=== PATIENT | male | born 1955 | race Hispanic/Latino ===

== ENCOUNTER 2017-09-03 09:49 | Day surgery (SDC) | payer OTHER ==
[2017-09-03] MEDS ORDERED: Dextrose 50% SYRINGE Inj (50 ml) ONE ×2 (10:00→10:03)
== END 2017-09-03 09:50 | disposition still patient (30) ==
LOC: C.CATHLAB 09:49
PROVIDERS: ATTEND Internal Medicine Interventional Cardiology
DX: Z53.9 Procedure and treatment not carried out, unspecified reason (principal)

== ENCOUNTER 2017-09-03 10:28 | Emergency (ER) | payer MEDICARE, MEDICAID ==
[2017-09-03 10:32] VITALS: BMI 24.3
[2017-09-03 10:40] VITALS: O2SAT 100
--- NOTE | 2017-09-03 11:02 | C.PDOC ---
History Of Present Illness <Suyapa Dougherty - Last Filed: 09/03/17 13:19> <Stephanie Leaivtt - Last Filed: 09/06/17 13:23> LTD DUE TO CLINICAL CONDITION; HX PER RAPID RESPONSE TEAM, EMS AND KIERA. 61-YEAR-OLD MALE, IS BROUGHT TO THE EMERGENCY DEPARTMENT WITH COMPLAINTS OF A WITNESSED GENERALIZED SEIZURE IN HEAD START DIRECTOR HOLDING AREA PRIOR TO ER ARRIVAL. PER RR TEAM, PT HAD TONIC CLONIC SZ, AND HAS HX OF KNOWN DISORDER. PT PENDING ELECTIVE CARDIAC CATH FOR CHEST PAIN WORKUP. S/P D50 X2 AND ATIVAN 2MG. PT SZ NOW RESOLVED. PER EMS PT WAS CONVERSANT AND INTERACTING EN ROUTE FROM [place] ON EXAM POST ICTAL ATRAUM NEURO RESPONDS TO VOICE FOCAL AND COMMAND NORMAL SZ ACTIVITY (Suyapa Dougherty) History Per: EMS History/Exam Limitations: clinical condition Recent Seizure Activity Began: Just Before Arrival <Suyapa Dougherty - Last Filed: 09/03/17 13:19> <Stephanie Leavitt - Last Filed: 09/06/17 13:23> Time Seen by Provider: 09/03/17 10:38 Chief Complaint (Nursing): Altered Mental Status Past Medical History Reviewed: Historical Data, Nursing Documentation, Vital Signs - Medical History PMH: Asthma, Dementia, Depression, Diabetes, GERD, HTN, Hypercholesterolemia, Parkinson's Disease, Chronic Kidney Disease, Seizures Family History: States: No Known Family Hx - Social History Hx Alcohol Use: No Hx Substance Use: No <Suyapa Dougherty - Last Filed: 09/03/17 13:19> Vital Signs: Last Vital Signs Temp 98.0 F 09/03/17 14:13 Pulse 73 09/03/17 14:13 Resp 16 09/03/17 14:13 BP 127/75 09/03/17 14:13 Pulse Ox 100 09/03/17 14:13 Review Of Systems Review Of Systems: ROS cannot be obtained secondary to pt's inabilty to answer questions. <Suyapa Dougherty - Last Filed: 09/03/17 13:19> Physical Exam - Physical Exam Appears: Non-toxic, No Acute Distress, Other (POST ICTAL ) Head: Atraumatic, Normacephalic Nose: Normal Lips: Normal Appearing Neck: Normal ROM Chest: Symmetrical Cardiovascular: Rhythm Regular, No Murmur Respiratory: Normal Breath Sounds, No Accessory Muscle Use Gastrointestinal/Abdominal: Soft, No Tenderness Extremity: Normal ROM, No Deformity Neurological/Psych: Other (RESPONDS TO VOICE, FOCAL COMMAND ) <Suyapa Dougherty - Last Filed: 09/03/17 13:19> ED Course And Treatment ECG: Interpreted By Me, Viewed By Me ECG Rhythm: Sinus Rhythm ECG Interpretation: No Acute Changes Interpretation Of ECG: QTc 506 Rate From EC O2 Sat by Pulse Oximetry: 100 (RA) Pulse Ox Interpretation: Normal <Suyapa Dougherty - Last Filed: 09/03/17 13:19> Progress - Data Reviewed Data Reviewed: EKG, Old records <Suyapa Dougherty - Last Filed: 09/03/17 13:19> <Stephanie Leavitt - Last Filed: 09/06/17 13:23> - Re-Evaluation Re-evaluation Note: 09/03/17 10:45 D/W DR MCFADDEN: STATES PT TRANSFERRED FROM [facility] FOR ELECTIVE CATH PART OF CP WORKUP. PT CAN RECEIVE IVF BOLUS. SBP 100, IMPROVED MENTATION. 09/03/17 11:14 D/W DR Michael RAI: AWARE OF ER FINDINGS, AGREES A MGMT PLAN. AGREES FOR TRANSFER BACK TO [facility] IF PT IMPROVES. C: [phone] O: [phone] 09/03/17 12:00 REMAINS SLEEPY BUT AROUSE TO LIGHT STIM. REPEAT FS >250. VSS. SBP 101. (Suyapa Dougherty) Disposition - Disposition Disposition Time: 13:00 <Suyapa Dougherty - Last Filed: 09/03/17 13:19> - Disposition Disposition Time: 13:35 <Stephanie Leavitt - Last Filed: 09/06/17 13:23> - Disposition Referrals: Sivakumar Rai MD [Staff Provider] - Disposition: Trans to Other Acute Care Hosp Condition: STABLE Instructions: Seizures, Adult (DC), Low Blood Sugar in People With Diabetes Forms: [facility] (Chinese) Print Language: UZBEK - Clinical Impression Clinical Impression: Hypoglycemia, Seizure - Scribe Statement The provider has reviewed the documentation as recorded by the Scribe (Sonido Duran) <Suyapa Dougherty - Last Filed: 09/03/17 13:19> <Stephanie Leavitt - Last Filed: 09/06/17 13:23> - Scribe Statement All medical record entries made by the Scribe were at my direction and personally dictated by me. I have reviewed the chart and agree that the record accurately reflects my personal performance of the history, physical exam, medical decision making, and the department course for this patient. I have also personally directed, reviewed, and agree with the discharge instructions and disposition. (Suyapa Dougherty) Physician Patient Turnover Patient Signed Over To: Stephanie Leavitt Handoff Comments: FU DISPO <Suyapa Dougherty - Last Filed: 09/03/17 13:19> Addendum <Suyapa Dougherty - Last Filed: 09/03/17 13:19> <Stephanie Leavitt - Last Filed: 09/06/17 13:23> Addendum: 09/03/17 13:35 Patient is wake & alert, conversing with me, is comfortable and in no distress. Vitals stable and repeat accucheck >300. Patient has been accepted for transfer back to [facility] by PMD Dr. Rai - will set up transfer. (Stephanie Leavitt)
--- NOTE | 2017-09-03 11:04 | C.PDOC ---
History Of Present Illness LTD DUE TO CLINICAL CONDITION HX PER RAPID RESPONSE TEAM, EMS AND KIERA. WITNESSED GEN SEIZURE IN ASSEMBLER DECK AND HULL HOLDING AREA PRIOR TO ER ARRIVAL PER RATEAM TONIC CLONIC SZ HX OF KNOWN DISORDER. PT PENDING ELECTIVE CARDIAC CATHJ FOR CP ORKUP. S/P D50 X2 SAND ATIVAN 2MG SZ NOW RESOLVED. PER MS PT WAS CONVERSANT AND INTERACTING ON ROUTE FROM [place] ON EXAM POST ICTAL ATRAUM NEURO RESPONDS TO VOICE FOCAL AND COMMND NORMAL SZ ACTVITY Time Seen by Provider: 09/03/17 10:38 Chief Complaint (Nursing): Altered Mental Status Past Medical History Vital Signs: Last Vital Signs Temp 98.4 F 09/03/17 10:33 Pulse 82 09/03/17 10:58 Resp 16 09/03/17 10:58 BP 100/54 L 09/03/17 10:58 Pulse Ox 100 09/03/17 10:58 - Medical History PMH: Asthma, Dementia, Depression, Diabetes, GERD, HTN, Hypercholesterolemia, Parkinson's Disease, Chronic Kidney Disease, Seizures Family History: States: Unknown Family Hx - Social History Hx Alcohol Use: No Hx Substance Use: No ED Course And Treatment O2 Sat by Pulse Oximetry: 100 Disposition - Disposition Forms: [facility] (Croatian)
[2017-09-03] MEDS ORDERED: Sodium Chloride 0.9% 250 ML IV ONE ×2 (11:07→11:13)
--- NOTE | 2017-09-03 11:27 | PCM.RRT ---
<Nisa Valerio - Last Filed: 09/03/17 13:18> LOW EMISSION [employer]OM[employer]BILE DESIGNER Nurses Assessment - Situation Date: 09/03/17 Time L[employer] EMISSION [employer] DESIGNER was called: 09:46 LOW EMISSION [employer]OM[employer]LE DESIGNER Responder Arrival Time:: 09:50 LOW EMISSION AUTOMOBILE DESIGNER Location:: Corporate Wellness Coordinator LOW EM[employer]ION [employer]BILE DESIGNER Reason for Call: Change in Mental Status LOW EMISSION AUTOMOBILE DESIGNER Called By: KIM CarranzaReason for LOW EMISSION AUTOMOBILE DESIGNER - A) Acute Change in Patient: (Select all that apply): Acute change in mental status - Neurological Status (Select all that apply): Confused. absent: Alert, Follows Commands Other (Please specify): Altered, then began to seize - Respiratory Oxygen Delivery Method: Room Air - Constitutional Appears: Older Than Stated Age Additional Comments: Altered Seizing in stretcher - Head Head Exam: ATRAUMATIC, NORMOCEPHALIC - Eyes Additional Comments: Unable to follow commands due to seizure - Respiratory Exam Respiratory Exam: Clear to Ausculation Bilateral, NORMAL BREATHING PATTERN. absent: Rales, Rhonchi, Wheezes, Respiratory Distress, Stridor - Cardiovascular Exam Cardiovascular Exam: REGULAR RHYTHM, +S1, +S2 - GI/Abdominal Exam GI & Abdominal Exam: Soft, Normal Bowel Sounds. absent: Distended, Firm, Guarding, Rigid, Tenderness - Neurological Exam Additional exam: Altered, seizing - Extremities Exam Extremities Exam: absent: Calf Tenderness, Pedal Edema Plan - Assessment of Findings&Treatment Plan Rapid response was called at 9:46AM Patient was transferred from [place] to [facility] this morning for cardiac catheterization with Dr. Darling. Patient was kept NPO overnight for cardiac cath today. As per EMS at bedside who transferred patient, patient was talking to them during the trip from [place] to [facility]. He became altered while he was in the holding area prior to cardiac cath today. Patient has a known history of seizure disorder, Type 1DM, HTN, asthma, dementia , depression, GERD, hypercholesterolemia, Parkinson's disease, chronic kidney disease. Patient is reportedly disabled and lives with mother. Initial vitals: HR 80 BP 152/76 Repeat vitals: HR 72 BP 136/66 Patient began to actively seize while at bedside. Patient was rolled onto his side and Ativan 2mg IV stat given. Patient stopped seizing, however remained altered. Patient could not answer questions at bedside. Accucheck at bedside was 29. Patient received 2AMPs of D50. Patient had a stat EKG at bedside which revealed sinus rhythm in bradycardia, no active ST-T changes. Final vitals HR 74 BP 96/50 Final accucheck 365 Patient was then taken to [facility] ER. Case discussed with Dr. Irwin Valerio, PGY1 <Irwin Ramos - Last Filed: 09/03/17 14:08> Attending/Attestation - Attestation I have personally seen and examined this patient.: Yes I have fully participated in the care of the patient.: Yes I have reviewed all pertinent clinical information, including history, physical exam and plan: Yes Notes (Text): 09/03/17 13:48 Medical Hospitalist: On arrival at cardiac warehouse general laborer, ambulance staff noted what appears to be seizure and an LOW EMISSION AUTOMOBILE DESIGNER was called. When I arrived he was still having shakes and ativan 2mg was given. Patient's blood sugar was only 29. It maybe that while at [place] he was NPO and still was reciving large amounts of insulin before comming to [facility] for the cardiac catherization. He was given an amp of D50 during the LOW EMISSION AUTOMOBILE DESIGNER and rechecked. After wards he remained post-ictal and was only mumbling. Per the ambulance staff while at [place] the patient was talkative and could hold a normal conversation. Irwin Ramos
[2017-09-03] MEDS ORDERED: Sodium Chloride 0.9% 500 ML IV ONE ×2 (11:58→12:11)
[2017-09-03 12:46] VITALS: RESP 16
[2017-09-03 13:55] VITALS: PULSE 73
[2017-09-03 14:14] VITALS: BP 127/75; TEMP 98
--- NOTE | 2017-09-07 15:23 | CARD ---
APPROVED REPORT Date of service: 09/03/2017 EKG Measurement Heart [id number] <Conclusion> Normal sinus rhythm Left anterior fascicular block Prolonged QT Abnormal ECG
== END 2017-09-03 14:32 | disposition short-term general hospital (02) ==
LOC: C.ER 10:28
DX: E11.649 Type 2 diabetes mellitus with hypoglycemia without coma (principal); R56.9 Unspecified convulsions
CPT/HCPCS: 82948; 93005; 99285; J2060; J7040

== ENCOUNTER 2017-09-09 09:56 | Day surgery (SDC) | payer OTHER ==
[2017-09-09] MEDS ORDERED: Lidocaine 2% MPF (5 ml) Inj ONE (11:13)
[2017-09-09] MEDS ORDERED: Midazolam 2 MG/2 ML VIAL ONE (11:19)
[2017-09-09] MEDS ORDERED: Iodixanol 320 MG/ML 200 ML BOTTLE IV ONE (11:19)
[2017-09-09] MEDS ORDERED: Sodium Chloride 0.9% 500 ML IV SCH (14:00)
--- NOTE | 2017-09-10 02:04 | PROCN ---
DATE: 09/09/2017 INDICATIONS: Mr. Whitley is a 61-year-old male who was admitted to [facility] from adult daycare facility secondary to episodes of chest pain. He was initially scheduled last week at which time he had an episode of seizure most likely secondary to hypoglycemia at which time he was returned back to [place]. He subsequently was brought back. He had a Lexiscan nuclear stress test where he had abnormal findings on the EKG with no evidence of perfusion defect on the nuclear scan. He had recurrent bouts of chest pain, and he was therefore brought to the laborer steel handling for further evaluation and treatment. PROCEDURE PERFORMED: Left heart catheterization with selective left and right coronary angiogram, left ventriculogram, 6-Moldovan right femoral arterial access, and Angio-Seal closure device for hemostasis. TECHNIQUES OF PROCEDURE: After obtaining informed consent, patient was brought to the cardiac catheterization in post-absorptive, non-sedated state. Patient was prepped and draped in the usual sterile fashion. 2% lidocaine was used for infiltration anesthesia. Using modified Seldinger technique, 6-Moldovan sheath was introduced into right femoral artery. Subsequently, over a J-wire, JL4 and JR4 diagnostic catheters were used to engage the left and right coronary system. Angiograms were obtained in different orthogonal views. LV gram was obtained in the LAURA view. Hemodynamics were obtained and pullback gradients were noted. At the end of the procedure, Angio-Seal device was deployed to achieve hemostasis. CORONARY ANATOMY: Left main is a large size vessel, bifurcates into LAD and left circumflex coronary artery. Left circumflex is a large size vessel, has a proximal 80% stenosis before the bifurcation of the first obtuse marginal branch, gives off a large obtuse marginal branch and continues in the AV groove as a medium size vessel and has a mid 80% stenosis. Obtuse marginal branch trifurcates distally and free of any obstructive disease. Left anterior descending is a large size vessel, has a proximal 90% stenosis and a mid 80% stenosis. RCA, large size vessel, has a proximal 40% stenosis and mid 40% stenosis. Normal left ventricular ejection fraction. EDP was 18 mmHg. IMPRESSION: Severe two-vessel coronary artery disease. RECOMMENDATIONS: Patient is to be planned for staged intervention of the LAD and left circumflex coronary artery. Patient will be transferred over to [facility] due to inability to consent, and therefore, not being a candidate to undergo PCI at our sister facility, [facility], under CPORT trial protocol. We will discuss with patient's family about further revascularization strategy. David Darling MD
== END 2017-09-09 15:30 | disposition short-term general hospital (02) ==
LOC: C.CATHLAB 09:56
PROVIDERS: ATTEND Internal Medicine Interventional Cardiology
DX: I25.10 Atherosclerotic heart disease of native coronary artery without angina pectoris (principal); R56.9 Unspecified convulsions
CPT/HCPCS: 82948; 93458; J1644; J2250; J3010; J7040; Q9966